=== PATIENT | female | born 1995 | race American Indian/Alaskan Native ===

== ENCOUNTER 2022-06-16 18:18 | Outpatient (CLI) | payer MEDICAID ==
[2022-06-16 18:47] VITALS: BP 111/68
--- NOTE | 2022-06-16 20:47 | Ultrasound Report ---
US OB BPP wo non-stress, US OB limited INDICATION / CLINICAL INFORMATION: decreased movement. COMPARISON: None available. FINDINGS: BREATHING MOVEMENT = 2 GROSS BODY MOVEMENT = 2 TONE = 2 QUALITATIVE AMNIOTIC FLUID VOLUME = 2 TOTAL BIOPHYSICAL SCORE = 06/03 AMNIOTIC FLUID INDEX (cm) = 14.7 PRESENTATION: Cephalic. HEART RATE (beats per minute): 149 IMPRESSION: 1. Single live intrauterine . No significant abnormality. 2. biophysical profile = 06/03 3. Amniotic fluid index is within normal limits, measuring 14.7 cm. Signer Name: Manish Turner MD Signed: 06/16/2022 8:43 PM Workstation Name: [id number]
== END 2022-06-16 20:51 | disposition home or self-care (01) ==
LOC: TRG 18:18 → APU 18:21 → TRG 20:51
PROVIDERS: ATTEND Student in an Organized Health Care Education/Training Program
DX: O36.8130 Decreased fetal movements, third trimester, not applicable or unspecified (principal); Z3A.38 38 weeks gestation of pregnancy
CPT/HCPCS: 76815; 76819

== ENCOUNTER 2022-06-26 00:24 | Inpatient (IN) | payer MEDICAID ==
--- NOTE | 2022-06-26 01:50 | Event Note ---
Date: 06/26/22 Pt arrived to triage for ctx. per nurse SVE /-2. Ctx q2-3 mins CAT I FHT tracing. Reports being 2 cm last week. Reports +FM, Denies LOF or VB. Discussed plan of care options, agrees to therapeutic rest with pain medication and re assess in 4 hours.
[2022-06-26] MEDS ORDERED: BUTORPHANOL 2 MG/1 ML INJ IV PRN ×2 (01:52→05:57)
[2022-06-26] MEDS ORDERED: PROMETHAZINE 25 MG TAB PO PRN ×2 (01:53→13:19)
--- NOTE | 2022-06-26 02:20 | History and Physical Report ---
History of Present Illness Date of examination: 06/26/22 Chief complaint: Close Contractions History of present illness: 26 y/o presents for labor. SVE after therapeutic rest 9.5/100/0 BBOW ctx q2-3mins. Admitting pt for labor. Records reviewed, GBS negative. Expectant management for now, Anticipate . EDC Calculations by LMP: 06/23/2022 Past History : 5 Term Births: 1 Premature Births: 0 Living Children: 1 Para: 1 Mult. Births: 0 Prev : 0 Prev. attempt? 0 Aborta: 3 Elect. Ab: 3 Spont. Ab: 0 Ectopics: 0 # 1 Delivery date: 09/01/2016 Weeks Gestation: 38 Delivery type: Vaginal Anesthesia type: epidural Delivery location: [facility] Sex: female weight: 6.44 Name: Rodriguez Comments: unknown rupture time # 2 Delivery date: 2017 Weeks Gestation: 5 Delivery type: EAB Comments: took medications, denies complications # 3 Delivery date: 2019 Weeks Gestation: 5 Delivery type: EAB Comments: took meds, denies complications # 4 Delivery date: 2020 Weeks Gestation: 5 Delivery type: EAB Comments: took meds, denies complications Past Medical History: Reviewed history from 12/14/2013 and no changes required: Negative Past Medical History Past Surgical History: Reviewed history from 01/23/2016 and no changes required: negative Family History Summary: Father - Has Family History of Brain Cancer - Entered On: 10/29/2021 General Comments - FH: No Family History of Breast Cancer No Family History of Cervical Cancer No Family History of Ovarvian Cancer No Family History of DVT/PE on OCP Social History: Reviewed history from 01/23/2016 and no changes required: Patient is single Commited relationship No ETOH or Drugs Smoking History: Patient has never smoked. Risk Factors: Smoked Tobacco Use: Never smoker Smokeless Tobacco Use: Never Counseled to Quit/Cut Down: yes Passive Smoke Exposure: no HIV High Risk Behavior: no Caffeine Use: 0 drinks per day Exercise: no Exercise Counseling: yes Seatbelt Use: preg-health counselor % Family History Risk Factors: Family History of LA in 1 Female Relative Age < 65: no Family History of LA in 1 Male Relative Age < 55: no No Dietary Counseling Reason: pn yes PAP Smear History: Date of Last PAP Smear: 10/28/2016 Results: Normal Alcohol Use: no Drug Use: no Past Medical History Anesthesia Complications: negative Anemia: negative Autoimmune Disorder: negative Bleeding Disorder: negative Blood Transfusions: negative Breast Disease: negative Diabetes: negative Heart Disease: negative Hypertension: negative Hepatitis/Liver Disease: negative Kidney Disease/UTI: negative Neurologic/Epilepsy/Migraines: negative Phlebitis/Varicosities: negative Psychiatric: negative Pulmonary Disease/Asthma: negative Thyroid Disease: negative Hospitalizations: negative Surgery (Non-development scientist): negative Abnormal PAP: negative GABI Exposure: negative Infertility: negative Uterine Anomaly: negative Uterine Surgery (not C/S): negative Other Gynecologic Problems: negative Social Hx: Patient is single Commited relationship No ETOH or Drugs Smoking History: Patient has never smoked. Infection History Hx of STD: none HIV Risk Eval: no Hepatitis B Risk Eval: low risk Personal hx. of genital herpes: no Partner hx. of genital herpes: no Rash, Viral, or Febrile illness since last LMP? no Varicella/Chicken Pox Status: Immunized TB Risk: no Genetic History Congenital Heart Defect: Mom: no Dad: no Mitchell Disease: Mom: no Dad: no Thalassemia Mom: no Dad: no Neural Tube Defect Mom: no Dad: no Down's Syndrome Mom: no Dad: no Adam-Sachs Mom: no Dad: no Sickle Cell Disease/Trait Mom: no Dad: no Hemophilia Mom: no Dad: no Muscular Dystrophy Mom: no Dad: no Cystic Fibrosis Mom: no Dad: no Churchill Chorea Mom: no Dad: no Mental Retardation Mom: no Dad: no Fragile X Mom: no Dad: no Other Genetic/Chromosomal Disorder Mom: no Dad: no Child w/other defect Mom: no Dad: no Enviromental Exposures Enviromental Exposures Reviewed Xray Exposure: no Medication, drug, or alcohol use since LMP: no Chemical/Other Exposure: no Exposure to Cat Liter: no Hx of Parvovirus (Fifth Disease): no Occupational Exposure to Children: none Current Allergies (reviewed today): No known allergies Past History Past Medical History: other (See HPI) Past Surgical History: other (See HPI) 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) Family/Genetic History: other (See HPI) Social history: other (See HPI) - Obstetrical History Expected Date of Delivery: 06/23/22 Actual Gestation: 40 Week(s) 3 Day(s) : 5 Para: 1 Hx # Term Pregnancies: 1 Spontaneous Abortions: 3 Number of Living Children: 1 Medications and Allergies Allergies Allergy/AdvReac Type Severity Reaction Status Date / Time No Known Allergies Allergy Verified 07/28/16 21:09 Home Medications Medication Instructions Recorded Confirmed Last Taken Type Ferrous Sulfate [Feosol 325 MG tab] 325 mg PO BID #60 tablet 09/02/16 Unknown Rx Ibuprofen [Motrin 800 MG tab] 800 mg PO Q6H PRN #30 tablet 09/02/16 Unknown Rx Active Meds: Active Medications Butorphanol Tartrate (Butorphanol 2 Mg/1 Ml Inj) 2 mg IV ONCE PRN PRN Reason: Labor Pain Promethazine HCl (Promethazine 25 Mg Tab) 25 mg PO Q6H PRN PRN Reason: Nausea And Vomiting Review of Systems All systems: negative Gastrointestinal: abdominal pain, other (Contractions) - Vital Signs Vital signs: Vital Signs Pulse BP Pulse Ox 96 H 124/75 97 06/26/22 01:06 06/26/22 01:06 06/26/22 01:06 Temp Pulse Resp BP Pulse Ox 98.2 F 96 H 14 124/75 98 06/26/22 01:07 06/26/22 02:11 06/26/22 01:07 06/26/22 01:06 06/26/22 02:11 - Physical Exam Breasts: Positive: normal Cardiovascular: Regular rate Abdomen: Positive: normal appearance, soft, normal bowel sounds. Negative: distention, tenderness Genitourinary (Female): Positive: normal external genitalia, normal perenium Vulva: both: normal Vagina: Positive: normal moisture. Negative: discharge Cervix: Negative: lesion, discharge Uterus: Positive: normal contour, other (gravid) Adnexa: both: normal Anus/Rectum: Positive: normal perianal skin. Negative: rectal mass, hemorrhoids Extremities: Positive: normal Deep Tendon Reflex Grade: Normal +2 - Obstetrical FHR: category 1 Uterine Contraction Monitor Mode: External Cervical Dilatation: 4 Cervical Effacement Percentage: 80 station: -2 Uterine Contraction Frequency (min): 2-3 Uterine Contraction Duration: 60-100 Uterine Contraction Pattern: Regular Uterine Tone Measurement Phase: Contraction Uterine Contraction Intensity: Strong/Firm Results All other labs normal. Assessment and Plan - Patient Problems (1) 40 weeks gestation of Current Visit: Yes Status: Acute Plan to address problem: Admit to L&D Expectant management Pain management IV or epidural PRN GBS negative Anticipate (2) Active labor Current Visit: No Status: Acute Plan to address problem: Admit to L&D Expectant management Pain management IV or epidural PRN GBS negative Anticipate
[2022-06-26] MEDS ORDERED: LACTATED RINGERS 1,000 ML ONE (05:54)
[2022-06-26] MEDS ORDERED: OXYTOCIN 10 UNIT/1 ML INJ IM PRN (05:57)
[2022-06-26] MEDS ORDERED: MINERAL OIL 30 ML ORAL LIQD PO PRN (05:57)
[2022-06-26] MEDS ORDERED: miSOPROStol 200 MCG TAB PR PRN (05:57)
[2022-06-26] MEDS ORDERED: LOPERAMIDE 2 MG CAP PO PRN (05:57)
[2022-06-26] MEDS ORDERED: fentaNYL 100 MCG/2 ML INJ IV PRN (05:57)
[2022-06-26] MEDS ORDERED: ePHEDrine SULFATE 50 MG/1 ML INJ IV PRN ×2 (05:57→07:17)
[2022-06-26] MEDS ORDERED: TERBUTALINE 1 MG/1 ML INJ SUB-Q PRN (05:57)
[2022-06-26] MEDS ORDERED: METHYLERGONOVINE MALEATE 0.2 MG/ML VIAL IM PRN (05:57)
[2022-06-26] MEDS ORDERED: ACETAMINOPHEN 325 MG TAB PO PRN (05:57)
[2022-06-26] MEDS ORDERED: LIDOCAINE (2%) 20 MG/1 ML VIAL 20 ML MDV INFILTRATI ONE (05:57)
[2022-06-26] MEDS ORDERED: CARBOPROST TROMETHAMINE 250 MCG/1 ML INJ IM PRN (05:57)
[2022-06-26] MEDS ORDERED: LACTATED RINGERS 1,000 ML IV SCH (06:00)
[2022-06-26 06:42] LABS: Hematocrit 35.6 % (30.3-42.9); Hemoglobin 12.6 gm/dl (10.1-14.3); Mean Corpuscular HGB Conc 36 % (30-34); Mean Corpuscular Volume 95 fl (79-97); Platelet Count 212 K/mm3 (140-440); Red Blood Count 3.76 M/mm3 (3.65-5.03); Red Cell Distribution Width 13.3 % (13.2-15.2)
--- NOTE | 2022-06-26 07:19 | Anesthesia Day of Surgery ---
Anesthesia Day of Surgery - Day of Surgery Patient Examined: Yes Patient H&P Reviewed: Yes Patient is NPO: Yes Beta Blockers: No Cardiac Clearance: No Pulmonary Clearance: No Samir's Test: N/A
--- NOTE | 2022-06-26 07:19 | Anesthesia Consultation ---
Anesthesia Consult and Med Hx Date of service: 06/26/22 - Airway Anesthetic Teeth Evaluation: Good ROM Head & Neck: Adequate Mental/Hyoid Distance: Adequate Mallampati Class: Class II Intubation Access Assessment: Probably Good - Pulmonary Exam CTA: Yes - Cardiac Exam Cardiac Exam: RRR - Pre-Operative Health Status ASA Pre-Surgery Classification: ASA2 Proposed Anesthetic Plan: Epidural - Pulmonary Hx Smoking: No Hx Asthma: No Hx Respiratory Symptoms: No SOB: No COPD: No Home Oxygen Therapy: No Hx Pneumonia: No Hx Sleep Apnea: No - Cardiovascular System Hx Hypertension: No Hx Coronary Artery Disease: No Hx Heart Attack/AMI: No Hx Angina: No Hx Percutaneous Transluminal Coronary Angioplasty (PTCA): No Hx Cardia Arrhythmia: No Hx Pacemaker: No Hx Internal Defibrillator: No Hx Valvular Heart Disease: No Hx Heart Murmur: No Hx Peripheral Vascular Disease: No - Central Nervous System Hx Neuromuscular Disorder: No Hx Seizures: No CVA: No Hx Back Pain: No Hx Psychiatric Problems: No - Gastrointestinal Hx Ulcer: No Hx Gastroesophageal Reflux Disease: No - Endocrine Hx Renal Disease: No Hx End Stage Renal Disease: No Hx Cirrhosis: No Hx Liver Disease: No Hx Insulin Dependent Diabetes: No Hx Non-Insulin Dependent Diabetes: No Hx Thyroid Disease: No Hx Hypothyroidism: No Hx Hyperthyroidism: No - Hematic Hx Anemia: No Hx Sickle Cell Disease: No - Other Systems Hx Alcohol Use: No Hx Substance Use: No Hx Cancer: No Hx Obesity: No
--- NOTE | 2022-06-26 07:22 | Progress Note ---
Labor Epidural - Labor Epidural Start Time: 06:59 Stop Time: 07:05 Performed by:: SONIA KISER Procedure: Epidural Requested for Labor Pain. H&P and PT Chart reviewed and consent obtained. Time out performed and the procedure was explained, all questions answered. Patient was placed in a sitting position with monitors applied. The PTs back was prepped and draped in usual sterile fashion. The Skin was localized with 3 mL of 1% lidocaine at L3-L4. A 17-gauge Touhy epidural needle was advanced to VIKTOR with saline at 7 cm and no blood/CSF was noted via epidural needle. Epidural catheter was advanced to 12 cm. There was negative aspiration for blood and CSF in the catheter and negative response to a test dose of 3 ml 1.5% lidocaine w/ Epi and a sterile dressing was applied Patient tolerated the procedure well and there were no immediate complications noted.
--- NOTE | 2022-06-26 07:25 | Event Note ---
Date: 06/26/22 Pt just received epidural. States she is comfortable. Currently category 1 with regular contractions. RN getting patient settled and hanging epidural bag. 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
[2022-06-26] MEDS ORDERED: NALOXONE 0.4 MG/1 ML INJ IV PRN (07:30)
[2022-06-26] MEDS ORDERED: fentaNYL-BUPIV 2 MCG/ML-0.125% 200 MCG/100 ML BAG EPIDURAL SCH (07:30)
--- NOTE | 2022-06-26 07:56 | Progress Note ---
Assessment and Plan A: 26 y.o. @ 40.3, AROM, active labor. - Patient Problems (1) Active labor Current Visit: No Status: Acute Plan to address problem: Continue with expectant management. Consider Pitocin if labor progression slows. Anticipate . Subjective - Subjective Date of service: 06/26/22 Principal diagnosis: IUP @ 40.3 wks, active labor Interval history: Pt comfortable with epidural. Pt repositioned in bed. Patient reports: movement normal, no new complaints, no loss of fluid, no vaginal bleeding, no contractions Objective - Vital Signs Vital Signs: Vital Signs - 12hr 06/26/22 06/26/22 06/26/22 01:06 01:07 01:08 Temperature 98.2 F Pulse Rate 96 H 94 H Respiratory 14 Rate Blood Pressure 124/75 O2 Sat by Pulse 97 100 93 Oximetry 06/26/22 06/26/22 06/26/22 01:11 01:16 01:21 Temperature Pulse Rate 99 H 96 H 98 H Respiratory Rate Blood Pressure O2 Sat by Pulse 98 97 98 Oximetry 06/26/22 06/26/22 06/26/22 01:26 01:31 01:36 Temperature Pulse Rate 99 H 100 H 105 H Respiratory Rate Blood Pressure O2 Sat by Pulse 96 98 98 Oximetry 06/26/22 06/26/22 06/26/22 01:37 01:41 01:46 Temperature Pulse Rate 95 H 94 H 91 H Respiratory Rate Blood Pressure O2 Sat by Pulse 92 98 99 Oximetry 06/26/22 06/26/22 06/26/22 01:51 01:56 02:01 Temperature Pulse Rate 99 H 98 H 98 H Respiratory Rate Blood Pressure O2 Sat by Pulse 97 98 98 Oximetry 06/26/22 06/26/22 06/26/22 02:06 02:09 02:11 Temperature Pulse Rate 91 H 99 H 96 H Respiratory Rate Blood Pressure O2 Sat by Pulse 98 91 98 Oximetry 06/26/22 06/26/22 06/26/22 02:16 02:21 02:25 Temperature Pulse Rate 92 H 98 H 94 H Respiratory Rate Blood Pressure O2 Sat by Pulse 97 96 93 Oximetry 06/26/22 06/26/22 06/26/22 02:26 02:30 02:31 Temperature Pulse Rate 93 H 83 85 Respiratory Rate Blood Pressure O2 Sat by Pulse 97 93 95 Oximetry 06/26/22 06/26/22 06/26/22 02:36 02:37 02:41 Temperature Pulse Rate 86 91 H 97 H Respiratory Rate Blood Pressure O2 Sat by Pulse 97 94 97 Oximetry 06/26/22 06/26/22 06/26/22 02:43 02:46 02:49 Temperature Pulse Rate 90 95 H 91 H Respiratory Rate Blood Pressure O2 Sat by Pulse 93 95 92 Oximetry 06/26/22 06/26/22 06/26/22 02:51 02:56 03:01 Temperature Pulse Rate 85 88 83 Respiratory Rate Blood Pressure O2 Sat by Pulse 97 94 95 Oximetry 06/26/22 06/26/22 06/26/22 03:04 03:06 03:10 Temperature Pulse Rate 99 H 90 93 H Respiratory Rate Blood Pressure O2 Sat by Pulse 92 92 93 Oximetry 06/26/22 06/26/22 06/26/22 03:11 03:16 03:17 Temperature Pulse Rate 84 103 H 96 H Respiratory Rate Blood Pressure O2 Sat by Pulse 95 92 90 Oximetry 06/26/22 06/26/22 06/26/22 03:21 03:23 03:26 Temperature Pulse Rate 91 H 85 102 H Respiratory Rate Blood Pressure O2 Sat by Pulse 98 94 97 Oximetry 06/26/22 06/26/22 06/26/22 03:29 03:31 03:34 Temperature Pulse Rate 96 H 91 H 89 Respiratory Rate Blood Pressure O2 Sat by Pulse 92 95 94 Oximetry 06/26/22 06/26/22 06/26/22 03:36 03:40 03:41 Temperature Pulse Rate 83 90 81 Respiratory Rate Blood Pressure O2 Sat by Pulse 96 94 96 Oximetry 06/26/22 06/26/22 06/26/22 03:46 03:51 03:56 Temperature Pulse Rate 85 85 89 Respiratory Rate Blood Pressure O2 Sat by Pulse 96 94 95 Oximetry 06/26/22 06/26/22 06/26/22 04:01 04:06 04:08 Temperature Pulse Rate 91 H 83 92 H Respiratory Rate Blood Pressure O2 Sat by Pulse 95 96 94 Oximetry 06/26/22 06/26/22 06/26/22 04:11 04:14 04:16 Temperature Pulse Rate 104 H 82 78 Respiratory Rate Blood Pressure O2 Sat by Pulse 97 94 98 Oximetry 06/26/22 06/26/22 06/26/22 04:21 04:26 04:30 Temperature Pulse Rate 88 92 H 107 H Respiratory Rate Blood Pressure O2 Sat by Pulse 97 96 94 Oximetry 06/26/22 06/26/22 06/26/22 04:31 04:36 04:37 Temperature Pulse Rate 98 H 86 89 Respiratory Rate Blood Pressure O2 Sat by Pulse 94 95 93 Oximetry 06/26/22 06/26/22 06/26/22 04:41 04:46 04:51 Temperature Pulse Rate 92 H 109 H 82 Respiratory Rate Blood Pressure O2 Sat by Pulse 96 96 97 Oximetry 06/26/22 06/26/22 06/26/22 04:56 04:59 05:01 Temperature Pulse Rate 86 97 H 95 H Respiratory Rate Blood Pressure O2 Sat by Pulse 98 94 97 Oximetry 06/26/22 06/26/22 06/26/22 05:06 05:10 05:11 Temperature Pulse Rate 89 92 H 87 Respiratory Rate Blood Pressure O2 Sat by Pulse 97 89 96 Oximetry 06/26/22 06/26/22 06/26/22 05:16 05:18 05:21 Temperature Pulse Rate 83 94 H 102 H Respiratory Rate Blood Pressure O2 Sat by Pulse 96 94 95 Oximetry 06/26/22 06/26/22 06/26/22 05:23 05:26 05:31 Temperature Pulse Rate 92 H 101 H 95 H Respiratory Rate Blood Pressure O2 Sat by Pulse 91 97 96 Oximetry 06/26/22 06/26/22 06/26/22 05:36 05:37 05:41 Temperature Pulse Rate 92 H 89 91 H Respiratory Rate Blood Pressure O2 Sat by Pulse 97 93 93 Oximetry 06/26/22 06/26/22 06/26/22 05:46 05:51 06:05 Temperature Pulse Rate 90 95 H 89 Respiratory Rate Blood Pressure O2 Sat by Pulse 97 98 98 Oximetry 06/26/22 06/26/22 06/26/22 06:10 06:11 06:15 Temperature Pulse Rate 87 88 95 H Respiratory Rate Blood Pressure O2 Sat by Pulse 98 94 98 Oximetry 06/26/22 06/26/22 06/26/22 06:20 06:25 06:28 Temperature Pulse Rate 85 91 H 87 Respiratory Rate Blood Pressure O2 Sat by Pulse 97 96 90 Oximetry 06/26/22 06/26/22 06/26/22 06:30 06:35 06:40 Temperature Pulse Rate 102 H 89 93 H Respiratory Rate Blood Pressure O2 Sat by Pulse 99 97 97 Oximetry 06/26/22 06/26/22 06/26/22 06:41 06:45 06:48 Temperature Pulse Rate 96 H 88 116 H Respiratory Rate Blood Pressure O2 Sat by Pulse 94 95 93 Oximetry 06/26/22 06/26/22 06/26/22 06:50 06:54 06:55 Temperature Pulse Rate 100 H 85 80 Respiratory Rate Blood Pressure O2 Sat by Pulse 98 92 95 Oximetry 06/26/22 06/26/22 06/26/22 07:00 07:01 07:05 Temperature Pulse Rate 75 95 H 100 H Respiratory Rate Blood Pressure O2 Sat by Pulse 97 91 98 Oximetry 06/26/22 06/26/22 06/26/22 07:06 07:09 07:10 Temperature Pulse Rate 88 92 H 88 Respiratory Rate Blood Pressure 151/84 134/68 O2 Sat by Pulse 99 Oximetry 06/26/22 06/26/22 06/26/22 07:15 07:20 07:23 Temperature Pulse Rate 92 H 93 H 88 Respiratory Rate Blood Pressure 110/56 104/58 O2 Sat by Pulse 100 97 Oximetry 06/26/22 06/26/22 06/26/22 07:25 07:29 07:30 Temperature Pulse Rate 93 H 85 94 H Respiratory Rate Blood Pressure 122/58 O2 Sat by Pulse 99 99 Oximetry 06/26/22 06/26/22 06/26/22 07:35 07:36 07:37 Temperature Pulse Rate 88 82 Respiratory Rate Blood Pressure 101/58 O2 Sat by Pulse 99 64 L Oximetry 06/26/22 06/26/22 06/26/22 07:40 07:43 07:45 Temperature Pulse Rate 83 110 H 81 Respiratory Rate Blood Pressure O2 Sat by Pulse 99 57 L 99 Oximetry 06/26/22 06/26/22 06/26/22 07:49 07:50 07:55 Temperature Pulse Rate 82 94 H 73 Respiratory Rate Blood Pressure 108/56 98/56 O2 Sat by Pulse 100 100 Oximetry - Exam Narrative Exam: AROM for large amount of clear fluid. Cardiovascular: Regular rate Lungs: Normal air movement Abdomen: Present: normal appearance, soft Vulva: both: normal Uterus: Present: normal FHR: category 1 Uterine Contraction Monitor Mode: External Cervical Dilatation: 9.5 Cervical Effacement Percentage: 100 station: -1 Uterine Contraction Pattern: Regular Uterine Tone Measurement Phase: Resting Uterine Contraction Intensity: Moderate - Labs Labs: Abnormal Labs 06/26/22 05:50 MCH 34 H MCHC 36 H Laboratory Results - last 24 hr 06/26/22 06/26/22 05:50 05:50 WBC 9.8 RBC 3.76 Hgb 12.6 Hct 35.6 MCV 95 MCH 34 H MCHC 36 H RDW 13.3 Plt Count 212 Blood Type O POSITIVE Antibody Screen Negative
[2022-06-26] MEDS: OXYTOCIN DRIP 30 UNITS/500 ML BAG IV SCH ×2 (10:12→10:27)
--- NOTE | 2022-06-26 10:21 | Procedure Note ---
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 Large amount of amniotic fluid noted after delivery of infant (400ml). Infant to mother's abdomen for skin to skin. Cord cut and clamped after cessation of pulse. Spontaneous delivery of placenta, intact, complete, 3 vessels noted. Perineum and vagina inspected, periurethral lacerations noted, hemostatic, no repair needed. Fundus firm, minimal bleeding noted. Apgars 8,9. Blood loss: 250ml. weight 7-9. Sponges and instruments counted X2 with RN and correct X2. Mother and infant left in care of RN in stable condition. - A at 1 minute: 8 at 5 minutes: 9 Infant Gender: Female (7-9, "Mildred")
--- NOTE | 2022-06-26 13:15 | Post Anesthesia Evaluation ---
- Post Anesthesia Evaluation Patient Participated: Yes Airway Patent: Yes Stable Respiratory Function: Yes Nausea/Vomiting: No Temp > 96.8F: Yes Pain Manageable: Yes Adequeate Hydration: Yes Anesthesia Complications: No Block Receding Appropriately: Yes Patient on Ventilator: No
[2022-06-26] MEDS ORDERED: oxyCODONE /ACETAMINOPHEN 5-325MG TAB PO PRN (13:19)
[2022-06-26] MEDS ORDERED: MAGNESIUM HYDROXIDE (MOM) ORAL LIQD UDC PO PRN (13:19)
[2022-06-26] MEDS ORDERED: diphenhydrAMINE 25 MG CAP PO PRN (13:19)
[2022-06-26] MEDS ORDERED: LANOLIN/ZINC/DIMETHICONE (LANSINOH) 7 GM TP PRN ×2 (13:19)
[2022-06-26] MEDS ORDERED: ONDANSETRON 4 MG/2 ML INJ IV PRN (13:19)
[2022-06-26] MEDS ORDERED: HYDROCORTISONE 25 MG RECTAL SUPP PR PRN (13:19)
[2022-06-26] MEDS ORDERED: PROMETHAZINE 25 MG RECT SUPP PR PRN (13:19)
[2022-06-26] MEDS ORDERED: ACETAMINOPHEN 500 MG TAB PO PRN (13:19)
[2022-06-26] MEDS ORDERED: miSOPROStol 100 MCG TAB PR PRN (13:19)
[2022-06-26] MEDS ORDERED: OXYTOCIN DRIP 30 UNITS/500 ML BAG IV SCH (13:19)
[2022-06-26] MEDS ORDERED: WITCH HAZEL/ GLYCERIN PAD TP PRN (13:19)
[2022-06-26] MEDS ORDERED: BENZOCAINE/MENTHOL 20/0.5% TOP SPRAY 56 GM TP PRN (13:19)
[2022-06-26] MEDS ORDERED: SENNOSIDES/DOCUSATE SODIUM 8.6/50 MG TAB PO SCH (14:00)
[2022-06-26] MEDS: DOCUSATE SODIUM 100 MG CAP PO SCH (21:39)
[2022-06-26] MEDS: IBUPROFEN 800 MG TAB PO SCH (23:12)
[2022-06-27 01:02] LABS: Hematocrit 34.3 % (30.3-42.9); Hemoglobin 11.1 gm/dl (10.1-14.3)
[2022-06-27] MEDS: IBUPROFEN 800 MG TAB PO SCH ×2 (05:08→12:28)
[2022-06-27] MEDS ORDERED: TETANUS,DIPH,PERTUSS(ACELL) VACCINE 0.5 ML SYRINGE IM ONE (06:00)
--- NOTE | 2022-06-27 09:00 | Discharge Summary ---
Providers - Providers Date of Admission: 06/26/22 05:57 Date of discharge: 06/27/22 (desires d/c home) Attending physician: ALIZA MILIAN Primary care physician: ALIZA MILIAN Hospitalization Reason for admission: Labor Condition: Good Pertinent studies: postdelivery H&H 11.1/34.3 Procedures: Hospital course: uncomplicated and course Disposition: 01 HOME / SELF CARE / HOMELESS Final Discharge Diagnosis (Prints w/discharge instructions): vaginal Time spent for discharge: 20 - Discharge Diagnoses (1) (normal spontaneous vaginal delivery) Status: Acute Core Measure Documentation - Palliative Care Palliative Care/ Comfort Measures: Not Applicable - Core Measures Any of the following diagnoses?: none Exam - Constitutional Vitals: Temp Pulse Resp BP Pulse Ox 97.9 F 66 16 115/75 97 06/27/22 08:02 06/27/22 08:02 06/27/22 08:02 06/27/22 08:02 06/27/22 08:02 General appearance: Present: no acute distress, well-nourished - EENT Eyes: Present: PERRL ENT: hearing intact, clear oral mucosa - Neck Neck: Present: supple, normal ROM - Respiratory Respiratory effort: normal Respiratory: bilateral: CTA - Cardiovascular Rhythm: regular Heart Sounds: Absent: rub, click - Extremities Extremities: pulses symmetrical, No edema Peripheral Pulses: within normal limits - Abdominal General gastrointestinal: Present: soft, non-tender, non-distended, normal bowel sounds Female genitourinary: Present: normal - Integumentary Integumentary: Present: clear, warm, dry - Musculoskeletal Musculoskeletal: gait normal, strength equal bilaterally - Psychiatric Psychiatric: appropriate mood/affect, intact judgment & insight - Neurologic Neurologic: CNII-XII intact, moves all extremities - Additional findings Additional findings: lochia scant, fundus firm, breastfeed Plan Activity: no restrictions Diet: regular Follow up with: ALIZA MILIAN MD [Primary Care Provider] - 6 Weeks (Congratulations! Please call [phone] to schedule your visit in 4 - 6 weeks, call for any questions or concerns. )
[2022-06-27] MEDS: DOCUSATE SODIUM 100 MG CAP PO SCH (09:34)
[2022-06-27] MEDS ORDERED: PRENATAL VIT27-FE FUMARATE-FOLIC ACID VIT TAB PO SCH (10:00)
[2022-06-27 14:34] VITALS: BP 114/64
== END 2022-06-27 15:05 | disposition home or self-care (01) | DRG 775 ==
LOC: TRG 00:24 → APU 00:26 → LD 05:57 → TRG 10:50 → OB 12:34
PROVIDERS: ADMIT Obstetrics & Gynecology; ATTEND Obstetrics & Gynecology
PROC: 10E0XZZ Delivery of Products of Conception, External Approach (ICD-10-PCS; principal; 2022-06-26)
PROC: 3E0R3BZ Introduction of Anesthetic Agent into Spinal Canal, Percutaneous Approach (ICD-10-PCS; 2022-06-26)
PROC: 00HU33Z Insertion of Infusion Device into Spinal Canal, Percutaneous Approach (ICD-10-PCS; 2022-06-26)
PROC: 3E0234Z Introduction of Serum, Toxoid and Vaccine into Muscle, Percutaneous Approach (ICD-10-PCS; 2022-06-27)
DX: O69.89X0 Labor and delivery complicated by other cord complications, not applicable or unspecified (principal); Z37.0 Single live birth; Z3A.40 40 weeks gestation of pregnancy; Z20.822 Contact with and (suspected) exposure to COVID-19; Z23 Encounter for immunization; O71.82 Other specified trauma to perineum and vulva
CPT/HCPCS: 36415; 59025; 85014; 85018; 85027; 86850; 86900; 86901; 96360; G0378; J3490; J0595; J2590; Q0169; U0003